=== PATIENT | female | born 1960 | race Two or more races ===

== ENCOUNTER 2016-12-02 17:09 | Emergency (ER) | payer BC, OTHER ==
[~2016-12-02] VITALS: Ht 165.1 cm; Wt 63.5 kg
[2016-12-02 19:15] VITALS: BP 151/82
[2016-12-02] MEDS ORDERED: IBUPROFEN 600 MG TAB PO ONE (20:30)
[2016-12-02] MEDS ORDERED: CYCLOBENZAPRINE HCL 10 MG TAB PO ONE (20:30)
== END 2016-12-02 21:20 | disposition home or self-care (01) ==
LOC: EDUNIT# 17:09 → ER 17:09
DX: S30.1XXA Contusion of abdominal wall, initial encounter (principal); R51 Headache; Z88.6 Allergy status to analgesic agent; F17.210 Nicotine dependence, cigarettes, uncomplicated; V43.62XA Car passenger injured in collision with other type car in traffic accident, initial encounter; Y93.89 Activity, other specified; Y99.8 Other external cause status; Y92.89 Other specified places as the place of occurrence of the external cause
CPT/HCPCS: 70450; 74176